=== PATIENT | male | born 1995 | race Caucasian/White ===

== ENCOUNTER 2021-03-24 19:56 | Emergency (ER) | payer BC | END 2021-03-24 22:06 | disposition home or self-care (01) | LOC: ER1 19:56 | DX: U07.1 COVID-19 (principal); Z88.0 Allergy status to penicillin; Z88.8 Allergy status to other drugs, medicaments and biological substances | CPT/HCPCS: 71045; 87081; 87880; 99283; U0003 ==

== ENCOUNTER 2021-11-29 22:35 | Emergency (ER) | payer BC | END 2021-11-30 04:15 | disposition home or self-care (01) | LOC: ER1 22:35 | DX: S61.215A Laceration without foreign body of left ring finger without damage to nail, initial encounter (principal); Z88.0 Allergy status to penicillin; W26.0XXA Contact with knife, initial encounter | CPT/HCPCS: 12001; 90471; 90715; 99282 ==